=== PATIENT | female | born 1935 | race Caucasian/White ===

== ENCOUNTER 2017-03-11 08:39 | Emergency (ER) | payer OTHER ==
[~2017-03-11] VITALS: Ht 162.6 cm; Wt 63.3 kg
[~2017-03-11 08:39] MED LIST: AMLO10TA2 PO; ASPI-515 PO; CLON0.2T PO; GLIP10TA13 PO; HYDR-3343 PO; LISI-170 PO; METF500T4 PO; METO25TA35 PO; SIMV10TA3 PO
[2017-03-11] MEDS ORDERED: SODIUM CHLORIDE FLUSH 10ML SYR IVF ONE (10:30)
[2017-03-11 10:48] LABS: HEMATOCRIT 38.3 % (34.6-47.8); HEMOGLOBIN 12.9 g/dL (11.7-16.4); WHITE BLOOD COUNT 6.2 x10^3/uL (3.4-10)
[2017-03-11 10:59] LABS: ASPARTATE AMINO TRANSFERASE 14 U/L (15-37); BLOOD UREA NITROGEN 18 mg/dL (7-18)
[2017-03-11 11:04] LABS: IS PT STATUS REG ER OR PRE ER? YES
[2017-03-11 12:02] VITALS: BP 132/59
== END 2017-03-11 13:44 | disposition home or self-care (01) ==
LOC: ED 09:18
DX: R06.09 Other forms of dyspnea (principal); I10 Essential (primary) hypertension; E11.9 Type 2 diabetes mellitus without complications; Z88.5 Allergy status to narcotic agent
CPT/HCPCS: 36415; 71010; 80053; 83605; 84484; 85025; 85610; 87040; 93005; 99285